=== PATIENT | male | born 1955 | race Caucasian/White ===

== ENCOUNTER → 2017-03-23 | Outpatient (CLI) | payer OTHER ==
[~2017-03-23] MED LIST: Benicar HCT 40/25 PO; DAILY VALUE1 EACH PO; FISH OIL 1,001000 M2 PO; Flomax PO; GARLIC1 MG PO; LIPOFEN PO; Percocet 5/325,Endoc PO; TRICOR145 MG PO; Tenormin PO; Zocor PO
== END | disposition home or self-care (01) ==
LOC: PICC 06:45
DX: M86.9 Osteomyelitis, unspecified (principal)
CPT/HCPCS: 76937; C1894

== ENCOUNTER 2018-01-01 13:58 | Inpatient (IN) | payer OTHER ==
[~2018-01-01] VITALS: Ht 190.5 cm; Wt 101.3 kg
[~2018-01-01 13:58] MED LIST changes: +BENICAR HCT 401 EAC1 PO; -Benicar HCT 40/25 PO; +FLOMAX0.4 MG PO; -Flomax PO; +TENORMIN50 MG PO; -Tenormin PO; +ZOCOR20 MG PO; -Zocor PO
[2018-01-01 14:39] LABS: HEMOGLOBIN 12.3 G/DL (12.5-16.6); MCH 32.5 PG (29.0-34.0); MCHC 35.1 G/DL (30.0-36.0); MCV 92.6 FL (86-99); PLATELET COUNT 345 K/uL (156-360); RBC DIS.WIDTH-CV 12.5 % (11.8-14.6); RBC DIS.WIDTH-SD 42.4 % (39-53); RED BLOOD COUNT 3.78 M/uL (4.00-5.50); WHITE BLOOD COUNT 15.4 K/uL (4.1-10.2)
[2018-01-01 14:47] LABS: CHLORIDE 99 mEq/L (99-109); POTASSIUM 3.7 mEq/L (3.7-5.4); SODIUM 132 mEq/L (136-147)
[2018-01-01 14:49] LABS: GLUCOSE 101 mg/dL (70-99)
[2018-01-01 14:53] LABS: CREATININE 3.6 mg/dL (0.6-1.3); GFR ESTIMATE (CALCULATED) 18 mL/min/ (58.99-99999)
[2018-01-01 14:59] LABS: TROP-I INTERPRETATION NEGATIVE; TROPONIN-I < 0.01 ng/mL (0.0-0.30)
[2018-01-01 15:07] LABS: UREA NITROGEN (BUN) 117 mg/dL (9-23)
[2018-01-01 16:43] LABS: MAGNESIUM 2.4 mg/dL (1.3-2.7)
[2018-01-01] MEDS ORDERED: HYDROCODON-ACE1 EAC8 PO (17:07)
[2018-01-01] MEDS ORDERED: CYCLOBENZAPRINE5 MG PO (17:07)
[2018-01-01 18:47] LABS: ALBUMIN 2.7 g/dL (3.2-4.8)
[2018-01-01 18:48] LABS: POTASSIUM 3.9 mEq/L (3.7-5.4); SODIUM 132 mEq/L (136-147)
[2018-01-01 18:49] LABS: CHLORIDE 109 mEq/L (99-109)
[2018-01-01 18:50] LABS: GLUCOSE 100 mg/dL (70-99)
[2018-01-01 18:52] LABS: HEMATOCRIT 26.1 % (38.0-50.0); MCH 32.6 PG (29.0-34.0); MCHC 34.9 G/DL (30.0-36.0); MCV 93.5 FL (86-99); PLATELET COUNT 259 K/uL (156-360); RBC DIS.WIDTH-CV 12.4 % (11.8-14.6); RBC DIS.WIDTH-SD 43.3 % (39-53)
[2018-01-01 18:53] LABS: HEMOGLOBIN 9.1 G/DL (12.5-16.6); PHOSPHORUS 2.8 mg/dL (2.5-4.9); RED BLOOD COUNT 2.79 M/uL (4.00-5.50)
[2018-01-01 18:59] LABS: CREATININE 2.9 mg/dL (0.6-1.3); GFR ESTIMATE (CALCULATED) 24 mL/min/ (58.99-99999); UREA NITROGEN (BUN) 112 mg/dL (9-23)
[2018-01-01 20:41] VITALS: BP 107/66
[2018-01-01 20:44] LABS: HEMOGLOBIN 9.1 G/DL (12.5-16.6); MCV 94.2 FL (86-99)
[2018-01-01 20:45] VITALS: BP 107/66
[2018-01-01 21:55] LABS: APPEARANCE CLEAR ((CLEAR)); BILIRUBIN NEGATIVE; BLOOD NEGATIVE; COLOR YELLOW ((YELLOW)); GLUCOSE (STRIP) NEGATIVE; KETONES NEGATIVE; LEUKOCYTES NEGATIVE; NITRITE NEGATIVE; PROTEIN (STRIP) NEGATIVE; UCUL ADDED? NO; UROBILINOGEN 0.2 MG/DL (0.2-1.0)
[2018-01-01 22:16] LABS: UR CREATININE CONCENTRATION 70.1 MG/DL
[2018-01-01 23:50] VITALS: BP 93/54
[2018-01-02] VITALS (9 sets, daily range): BP systolic 83–102; BP diastolic 47–59
[2018-01-02 01:54] LABS: HEMATOCRIT 26.4 % (38.0-50.0); HEMOGLOBIN 9.2 G/DL (12.5-16.6)
[2018-01-02 06:44] LABS: ALBUMIN 2.8 G/DL (3.2-4.8); CHLORIDE 109 MEQ/L (99-109); GFR ESTIMATE (CALCULATED) 29 mL/min/ (58.99-99999); GLUCOSE 74 mg/dL (70-99); PHOSPHORUS 2.7 mg/dL (2.5-4.9); POTASSIUM 3.7 MEQ/L (3.7-5.4); SODIUM 138 MEQ/L (136-147); UREA NITROGEN (BUN) 97 mg/dL (9-23)
[2018-01-02 06:48] LABS: CREATININE 2.4 MG/DL (0.6-1.3)
[2018-01-02 07:34] LABS: HEMATOCRIT 24.5 % (38.0-50.0); HEMOGLOBIN 8.2 G/DL (12.5-16.6); MCV 94.6 FL (86-99)
[2018-01-02 09:49] LABS: ALKALINE PHOSPHATASE 46 IU/L (3-129); ALT (GPT) 6 IU/L (3-49); AST (GOT) 10 IU/L (2-34); DIRECT BILIRUBIN 0.1 mg/dL (0.0-0.3); TOTAL BILIRUBIN 0.3 MG/DL (0.0-1.0); TOTAL PROTEIN 4.5 G/DL (6.4-8.3)
[2018-01-02 14:37] LABS: HEMATOCRIT 24.7 % (38.0-50.0); HEMOGLOBIN 8.3 G/DL (12.5-16.6); MCV 95.7 FL (86-99)
[2018-01-02 20:11] LABS: HEMATOCRIT 20.9 % (38.0-50.0); HEMOGLOBIN 7.1 G/DL (12.5-16.6); MCV 96.8 FL (86-99)
[2018-01-03] VITALS (10 sets, daily range): BP systolic 90–106; BP diastolic 50–63
[2018-01-03 07:00] LABS: HEMATOCRIT 26.3 % (38.0-50.0); MCH 31.7 PG (29.0-34.0); MCHC 34.2 G/DL (30.0-36.0); PLATELET COUNT 233 K/uL (156-360); RBC DIS.WIDTH-CV 13.5 % (11.8-14.6); RBC DIS.WIDTH-SD 45.9 % (39-53); RED BLOOD COUNT 2.84 M/uL (4.00-5.50); WHITE BLOOD COUNT 9.6 K/uL (4.1-10.2)
[2018-01-03 07:01] LABS: MCV 92.6 FL (86-99)
[2018-01-03 07:17] LABS: ALBUMIN 2.7 G/DL (3.2-4.8); CHLORIDE 110 MEQ/L (99-109); GFR ESTIMATE (CALCULATED) 38 mL/min/ (58.99-99999); PHOSPHORUS 2.3 mg/dL (2.5-4.9); POTASSIUM 3.7 MEQ/L (3.7-5.4); SODIUM 138 MEQ/L (136-147); UREA NITROGEN (BUN) 80 mg/dL (9-23)
[2018-01-03 07:28] LABS: CREATININE 1.9 MG/DL (0.6-1.3); GLUCOSE 97 mg/dL (70-99)
[2018-01-04] VITALS (10 sets, daily range): BP systolic 89–107; BP diastolic 51–63
[2018-01-04 06:46] LABS: ALBUMIN 2.5 G/DL (3.2-4.8); CHLORIDE 108 MEQ/L (99-109); CREATININE 1.7 MG/DL (0.6-1.3); GFR ESTIMATE (CALCULATED) 44 mL/min/ (58.99-99999); GLUCOSE 111 mg/dL (70-99); PHOSPHORUS 2.5 mg/dL (2.5-4.9); POTASSIUM 3.8 MEQ/L (3.7-5.4); SODIUM 138 MEQ/L (136-147); UREA NITROGEN (BUN) 70 mg/dL (9-23)
[2018-01-04 10:08] LABS: HEMATOCRIT 20.5 % (38.0-50.0); HEMOGLOBIN 7.1 G/DL (12.5-16.6); MCV 92.3 FL (86-99)
[2018-01-04 22:52] LABS: HEMOGLOBIN 8.6 G/DL (12.5-16.6); MCV 89.2 FL (86-99)
[2018-01-05] VITALS (11 sets, daily range): BP systolic 94–163; BP diastolic 56–90
[2018-01-05 06:43] LABS: MCH 30.9 PG (29.0-34.0); MCV 90.9 FL (86-99); NRBC (%) 0.1 /100 WBC (0-0); PLATELET COUNT 275 K/uL (156-360); RBC DIS.WIDTH-CV 15.2 % (11.8-14.6); RBC DIS.WIDTH-SD 49.5 % (39-53)
[2018-01-05 06:49] LABS: HEMOGLOBIN 6.8 G/DL (12.5-16.6)
[2018-01-05 06:59] LABS: CHLORIDE 108 MEQ/L (99-109); CREATININE 1.7 MG/DL (0.6-1.3); GFR ESTIMATE (CALCULATED) 44 mL/min/ (58.99-99999); GLUCOSE 151 mg/dL (70-99); HDL CHOLESTEROL 23 MG/DL (Desirable>=40); LDL CHOLESTEROL 31 mg/dL (Desirable<100); NON-HDL CHOLESTEROL 57 mg/dL (Desirable<160); POTASSIUM 3.9 MEQ/L (3.7-5.4); SODIUM 140 MEQ/L (136-147); TOTAL CHOLESTEROL 80 mg/dL (Desirable<200); TRIGLYCERIDES 128 MG/DL (Normal: <150); UREA NITROGEN (BUN) 62 mg/dL (9-23)
[2018-01-05 07:12] LABS: TROP-I INTERPRETATION NEGATIVE; TROPONIN-I 0.02 ng/mL (0.0-0.30)
[2018-01-05 07:14] LABS: ALBUMIN 2.4 G/DL (3.2-4.8); CHLORIDE 109 MEQ/L (99-109); CREATININE 1.7 MG/DL (0.6-1.3); GFR ESTIMATE (CALCULATED) 44 mL/min/ (58.99-99999); GLUCOSE 149 mg/dL (70-99); PHOSPHORUS 2.2 mg/dL (2.5-4.9); POTASSIUM 3.9 MEQ/L (3.7-5.4); SODIUM 139 MEQ/L (136-147); UREA NITROGEN (BUN) 60 mg/dL (9-23)
[2018-01-05 08:42] LABS: INTER. NORMALIZED RATIO 1.2
[2018-01-05 10:28] LABS: HEMOGLOBIN 7.4 G/DL (12.5-16.6); MCV 93.2 FL (86-99)
[2018-01-05 14:50] LABS: MCV 91.8 FL (86-99)
[2018-01-05 19:12] LABS: HEMATOCRIT 31.5 % (38.0-50.0); HEMOGLOBIN 10.6 G/DL (12.5-16.6); MCV 90.5 FL (86-99)
[2018-01-06 04:29] VITALS: BP 138/78
[2018-01-06 06:34] LABS: ALBUMIN 2.6 G/DL (3.2-4.8); CHLORIDE 114 MEQ/L (99-109); CREATININE 1.5 MG/DL (0.6-1.3); GFR ESTIMATE (CALCULATED) 51 mL/min/ (58.99-99999); POTASSIUM 4.3 MEQ/L (3.7-5.4); SODIUM 145 MEQ/L (136-147); UREA NITROGEN (BUN) 45 mg/dL (9-23)
[2018-01-06 06:38] LABS: GLUCOSE 107 mg/dL (70-99); PHOSPHORUS 4.1 mg/dL (2.5-4.9)
[2018-01-06 06:43] LABS: HEMATOCRIT 30.4 % (38.0-50.0); HEMOGLOBIN 10.3 G/DL (12.5-16.6); MCH 31.6 PG (29.0-34.0); MCHC 33.9 G/DL (30.0-36.0); MCV 93.3 FL (86-99); NRBC (%) 0.2 /100 WBC (0-0); PLATELET COUNT 222 K/uL (156-360); RBC DIS.WIDTH-CV 15.8 % (11.8-14.6); RBC DIS.WIDTH-SD 52.7 % (39-53); WHITE BLOOD COUNT 16.2 K/uL (4.1-10.2)
[2018-01-06 06:48] LABS: RED BLOOD COUNT 3.26 M/uL (4.00-5.50)
[2018-01-06 08:55] VITALS: BP 143/75
[2018-01-06 12:25] VITALS: BP 136/72
[2018-01-06 16:50] VITALS: BP 165/78
[2018-01-06 21:00] VITALS: BP 159/85
[2018-01-06 23:10] VITALS: BP 147/84
[2018-01-07 02:48] VITALS: BP 140/85
[2018-01-07 05:37] LABS: HEMATOCRIT 24.5 % (38.0-50.0); MCH 30.6 PG (29.0-34.0); MCHC 33.5 G/DL (30.0-36.0); MCV 91.4 FL (86-99); PLATELET COUNT 256 K/uL (156-360); RBC DIS.WIDTH-CV 16.1 % (11.8-14.6); RBC DIS.WIDTH-SD 51.9 % (39-53); RED BLOOD COUNT 2.68 M/uL (4.00-5.50)
[2018-01-07 05:38] LABS: HEMOGLOBIN 8.2 G/DL (12.5-16.6)
[2018-01-07 06:04] LABS: ALBUMIN 2.5 G/DL (3.2-4.8); CHLORIDE 114 MEQ/L (99-109); CREATININE 1.2 MG/DL (0.6-1.3); GFR ESTIMATE (CALCULATED) > 59 mL/min/ (58.99-99999); GLUCOSE 110 mg/dL (70-99); PHOSPHORUS 2.2 mg/dL (2.5-4.9); POTASSIUM 3.6 MEQ/L (3.7-5.4); SODIUM 145 MEQ/L (136-147); UREA NITROGEN (BUN) 30 mg/dL (9-23)
[2018-01-07 08:26] VITALS: BP 157/81
[2018-01-07 11:42] VITALS: BP 145/78
[2018-01-07 16:45] VITALS: BP 156/75
[2018-01-07 19:30] VITALS: BP 140/78
[2018-01-08 05:38] VITALS: BP 140/65
[2018-01-08 06:10] LABS: HEMATOCRIT 25.5 % (38.0-50.0); HEMOGLOBIN 8.4 G/DL (12.5-16.6); MCH 30.8 PG (29.0-34.0); MCHC 32.9 G/DL (30.0-36.0); MCV 93.4 FL (86-99); PLATELET COUNT 266 K/uL (156-360); RBC DIS.WIDTH-CV 16.4 % (11.8-14.6); RBC DIS.WIDTH-SD 52.3 % (39-53); RED BLOOD COUNT 2.73 M/uL (4.00-5.50); WHITE BLOOD COUNT 11.1 K/uL (4.1-10.2)
[2018-01-08 06:33] LABS: ALBUMIN 2.5 G/DL (3.2-4.8); CHLORIDE 112 MEQ/L (99-109); CREATININE 1.1 MG/DL (0.6-1.3); GFR ESTIMATE (CALCULATED) > 59 mL/min/ (58.99-99999); GLUCOSE 94 mg/dL (70-99); GLUCOSE 96 mg/dL (70-99); PHOSPHORUS 1.7 mg/dL (2.5-4.9); POTASSIUM 3.4 MEQ/L (3.7-5.4); POTASSIUM 3.5 MEQ/L (3.7-5.4); SODIUM 143 MEQ/L (136-147); SODIUM 145 MEQ/L (136-147); UREA NITROGEN (BUN) 22 mg/dL (9-23); UREA NITROGEN (BUN) 23 mg/dL (9-23)
[2018-01-08 07:27] VITALS: BP 122/63
[2018-01-08 10:00] LABS: MAGNESIUM 1.8 mg/dl (1.3-2.7); PHOSPHORUS 1.7 mg/dL (2.5-4.9)
[2018-01-08 10:39] VITALS: BP 131/63
[2018-01-08 15:56] VITALS: BP 119/56
[2018-01-08 19:30] VITALS: BP 115/56
[2018-01-08 23:24] VITALS: BP 120/70
[2018-01-09 03:29] VITALS: BP 124/70
[2018-01-09 05:34] LABS: HEMATOCRIT 25.3 % (38.0-50.0); HEMOGLOBIN 8.5 G/DL (12.5-16.6); MCH 31.4 PG (29.0-34.0); MCHC 33.6 G/DL (30.0-36.0); MCV 93.4 FL (86-99); RBC DIS.WIDTH-SD 53.2 % (39-53); RED BLOOD COUNT 2.71 M/uL (4.00-5.50); WHITE BLOOD COUNT 10.7 K/uL (4.1-10.2)
[2018-01-09 05:41] LABS: CHLORIDE 114 MEQ/L (99-109); GFR ESTIMATE (CALCULATED) > 59 mL/min/ (58.99-99999); GLUCOSE 81 mg/dL (70-99); POTASSIUM 4.1 MEQ/L (3.7-5.4); SODIUM 143 MEQ/L (136-147); UREA NITROGEN (BUN) 17 mg/dL (9-23)
[2018-01-09 06:25] LABS: PLATELET COUNT 240 K/uL (156-360)
[2018-01-09 08:23] VITALS: BP 135/70
[2018-01-09] MEDS ORDERED: NORCO 5/3251 TABLET PO (09:04)
[2018-01-09] MEDS ORDERED: PANTOPRAZOLE SO40 MG PO (09:59)
== END 2018-01-09 10:44 | disposition home or self-care (01) | DRG 981 ==
LOC: EME 13:58 → 4EAST 15:49 → 5EAST 15:49 → EDOF 15:49 → ENRESERV 15:58 → EDOF 16:19 → ENRESERV 16:20 → 4EAST 20:23 → ENRESERV 01-02 12:02 → CANRESERV 01-02 12:02 → ENRESERV 01-02 15:38 → 5EAST 01-02 17:01 → CANRESERV 01-05 07:08 → ENRESERV 01-05 07:08 → 5EAST 01-05 11:42 → ENRESERV 01-05 13:44 → 4EAST 01-05 16:14 → ENRESERV 01-08 07:42 → CANRESERV 01-08 07:42 → ENRESERV 01-08 09:08 → 3EAST 01-08 10:17
PROVIDERS: Anesthesiology; Hospitalist; Internal Medicine; Internal Medicine Nephrology; Surgery
PROC: 30233N1 Transfusion of Nonautologous Red Blood Cells into Peripheral Vein, Percutaneous Approach (ICD-10-PCS; 2018-01-02)
PROC: 0DB68ZX Excision of Stomach, Via Natural or Artificial Opening Endoscopic, Diagnostic (ICD-10-PCS; principal; 2018-01-03)
PROC: 3E1G88Z Irrigation of Upper GI using Irrigating Substance, Via Natural or Artificial Opening Endoscopic (ICD-10-PCS; principal; 2018-01-03)
PROC: 0FT40ZZ Resection of Gallbladder, Open Approach (ICD-10-PCS; 2018-01-05)
PROC: 0DC90ZZ Extirpation of Matter from Duodenum, Open Approach (ICD-10-PCS; 2018-01-05)
PROC: 0DQ90ZZ Repair Duodenum, Open Approach (ICD-10-PCS; 2018-01-05)
PROC: 0T9B70Z Drainage of Bladder with Drainage Device, Via Natural or Artificial Opening (ICD-10-PCS; 2018-01-05)
DX: N17.9 Acute kidney failure, unspecified (principal); K26.4 Chronic or unspecified duodenal ulcer with hemorrhage; K27.4 Chronic or unspecified peptic ulcer, site unspecified, with hemorrhage; R57.8 Other shock; I95.9 Hypotension, unspecified; D62 Acute posthemorrhagic anemia; E87.2 Acidosis; K29.80 Duodenitis without bleeding; N28.1 Cyst of kidney, acquired; E83.39 Other disorders of phosphorus metabolism; K57.92 Diverticulitis of intestine, part unspecified, without perforation or abscess without bleeding; K31.5 Obstruction of duodenum; E78.5 Hyperlipidemia, unspecified; I10 Essential (primary) hypertension; N40.0 Benign prostatic hyperplasia without lower urinary tract symptoms; N35.9 Urethral stricture, unspecified; E86.0 Dehydration; K76.0 Fatty (change of) liver, not elsewhere classified; F41.9 Anxiety disorder, unspecified; G89.29 Other chronic pain; K29.70 Gastritis, unspecified, without bleeding; E88.09 Other disorders of plasma-protein metabolism, not elsewhere classified; R55 Syncope and collapse; F17.200 Nicotine dependence, unspecified, uncomplicated; Z85.828 Personal history of other malignant neoplasm of skin; M54.9 Dorsalgia, unspecified; K40.90 Unilateral inguinal hernia, without obstruction or gangrene, not specified as recurrent; R00.0 Tachycardia, unspecified; E87.6 Hypokalemia; Z79.1 Long term (current) use of non-steroidal anti-inflammatories (NSAID); Z79.899 Other long term (current) drug therapy; D69.1 Qualitative platelet defects; K21.9 Gastro-esophageal reflux disease without esophagitis; K57.30 Diverticulosis of large intestine without perforation or abscess without bleeding; K66.0 Peritoneal adhesions (postprocedural) (postinfection); T39.395A Adverse effect of other nonsteroidal anti-inflammatory drugs [NSAID], initial encounter; K85.90 Acute pancreatitis without necrosis or infection, unspecified; Z53.20 Procedure and treatment not carried out because of patient's decision for unspecified reasons
CPT/HCPCS: 71045; 71046; 74176; 76705; 76770; 80048; 80048 91; 80061; 80069; 80076; 81003; 82436; 82570; 82575; 82948; 83605; 83735; 84100; 84133; 84300; 84484; 85014; 85018; 85027; 85610; 86850; 86900; 86901; 86920; 88304; 88305; 88342 TC; 93005; 94799; 99281; 99285; A6214; C9113; J0131; J0330; J1100; J1170; J1650; J2250; J2405; J2765; J3010; J3480; J7030; J7040; J7050; J7120; P9016; P9045; S0074